=== PATIENT | female | born 1945 | race Caucasian/White ===

== ENCOUNTER → 2017-03-29 | Outpatient (CLI) | payer OTHER | LOC: FIMAGING 08:32 | PROVIDERS: ATTEND Internal Medicine | DX: Z12.31 Encounter for screening mammogram for malignant neoplasm of breast (principal) | CPT/HCPCS: G0202 ==

== ENCOUNTER → 2017-04-05 | Outpatient (CLI) | payer OTHER | LOC: FIMAGING 12:08 | PROVIDERS: ATTEND Internal Medicine | DX: Z12.39 Encounter for other screening for malignant neoplasm of breast (principal); R92.8 Other abnormal and inconclusive findings on diagnostic imaging of breast ==

== ENCOUNTER 2017-06-15 10:40 | Day surgery (SDC) | payer OTHER ==
[2017-06-15] MEDS ORDERED: LR 1,000 ML IV ONE (11:16)
[2017-06-15] MEDS ORDERED: hydrALAZINE 20 MG/ML VIAL ONE (11:33)
[2017-06-15] MEDS ORDERED: MIDAZOLAM 2 MG/2 ML VIAL IVP ONE (11:39)
[2017-06-15] MEDS ORDERED: hydrALAZINE 20 MG/ML VIAL IVP ONE (11:39)
--- NOTE | 2017-06-15 11:39 | PDANEPAE ---
ANE History of Present Illness dysphagia ANE Past Medical History - Cardiovascular History Hx Hypertension: Yes Hx Arrhythmias: No Hx Chest Pain: No Hx Coronary Artery / Peripheral Vascular Disease: No Hx CHF / Valvular Disease: No Hx Palpitations: No Cardiovascular History Comment: HYPERLIPIDEMIA - Pulmonary History Hx COPD: No Hx Asthma/Reactive Airway Disease: No Hx Recent Upper Respiratory Infection: No Hx Oxygen in Use at Home: No Hx Sleep Apnea: No Sleep Apnea Screening Result - Last Documented: Negative - Neurologic History Hx Cerebrovascular Accident: No Hx Seizures: No Hx Dementia: No - Endocrine History Hx Diabetes: Yes Endocrine History Comment: HYPOTHYROID - Renal History Hx Renal Disorders: No - Liver History Hx Hepatic Disorders: No - Neurological & Psychiatric Hx Hx Neurological and Psychiatric Disorders: Yes Neurological / Psychiatric History Comment: ANXIETY - Cancer History Hx Cancer: No - Congenital Disorder History Hx Congenital Disorders: No - GI History Hx Gastrointestinal Disorders: Yes Gastrointestinal History Comment: DIFFICULTY SWALLOWING. DIVERTICULOSIS - Other Health History Other Health History: NEG - Chronic Pain History Chronic Pain: No - Surgical History Prior Surgeries: COLON RESECTION - TUMOR BENIGN ANE Review of Systems - Exercise capacity METS (RN): 4 METS ANE Patient History - Allergies Allergies/Adverse Reactions: No Known Allergies Allergy (Verified 01/04/15 22:48) - Home Medications Home medications: home medication list seen and reviewed Home Medications: Atorvastatin Calcium [Lipitor 20 mg (*)] 20 mg PO DAILY 01/04/15 [Last Taken ] Cholecalciferol Vit D3 [Vitamin D3 (*)] 1,000 units PO DAILY 01/04/15 [Last Taken 01/04/15] Herbals/Supplements -Info Only 1 ea PO DAILY 01/04/15 [Last Taken Unknown] Levothyroxine [Synthroid 112 mcg (*)] 112 mcg PO DAILY06 01/04/15 [Last Taken ] Metoprolol Succinate Xr [Toprol Xl 50 mg (*)] 50 mg PO DAILY 01/04/15 [Last Taken 01/04/15] PARoxetine HCL [Paxil 10mg (*)] 10 mg PO DAILY 01/04/15 [Last Taken 01/04/15] amLODIPine BESYLATE [Norvasc 5 mg (*)] 5 mg PO DAILY 01/04/15 [Last Taken ] traZODone [traZODONE 50MG (*)] 75 mg PO HS 01/04/15 [Last Taken 01/03/15] - Anes Hx Anes Hx: no prior problems - Smoking Hx Smoking Status: Never smoked - Family Anes Hx Family Hx Anesthesia Complications: NEG ANE Labs/Vital Signs - Vital Signs Height: 160.02 cm Weight: 74.843 kg ANE Physical Exam - Airway Neck exam: FROM Mallampati Score: Class 2 Mouth exam: normal dental/mouth exam - Pulmonary Pulmonary: no respiratory distress - Cardiovascular Cardiovascular: regular rate and rhythym - ASA Status ASA Status: III ANE Anesthesia Plan Anesthesia Plan: GA with mask
[2017-06-15 11:42] VITALS: RESP 18
--- NOTE | 2017-06-15 12:03 | PDHPUP ---
History & Physical Update H&P update statement: This history and physical update is based on an assessment of the patient which was completed after admission or registration (within 24 hours), but prior to the surgery/procedure. H&P update: H&P reviewed & patient examined, no change in patient's condition since H&P completed
--- NOTE | 2017-06-15 12:05 | PDGENHP ---
History & Physical Chief Complaint: Dyphagia History of Present Illness: Pt choked on food Pertinent Past, Social, Family History: Negative to HPI Relevant Physical Exam: Afeb. Cv rrr s1s2 nl. Chest CTA. Abd + bs soft Cardiorespiratory Assessment: See PE. EGD to r/o stricture
--- NOTE | 2017-06-15 12:32 | POSTANESTH ---
Post Anesthetic Evaluation Cardiovascular Status: Normal, Stable Respiratory Status: Normal, Stable Level of Consciousness/Mental Status: Can Participate in Eval Pain Control: Adequate, Prn Tx Ordered Nausea/Vomiting Control: Adequate, Prn Tx Ordered Complications Possibly Related to Anesthesia: None Noted
[2017-06-15 13:15] VITALS: BP 140/88; PULSE 84; TEMP 98.1; O2SAT 94
--- NOTE | 2017-06-15 18:45 | GPN ---
[f rep st] PROCEDURE NOTE DATE OF PROCEDURE: 06/15/2017 PROCEDURE PERFORMED: Upper endoscopy with biopsy. INSTRUMENT USED: Olympus gastroscope. MEDICINES GIVEN: Propofol per the anesthesiologist. INDICATIONS: Patient is a 71-year-old who describes a single episode of choking on a large piece of pineapple, which resulted in syncope. She says her was able to remove the pineapple and sh e recovered; but in general does not have significant feeling of food sticking as she swallows or tr ue esophageal dysphagia, occasional acid reflux, although patient remotely does have a history of dy sphagia when seen in the office in 2011. At that time, an upper endoscopy was recommended. Because of her recent episode, upper endoscopy is recommended for evaluation of dysphagia. Prior to the procedure, exam was performed, including auscultation. Heart and lungs within normal l imits. Patient's mental status was appropriate. Procedure was explained; including the risks of bl eeding, perforation, and effects of sedation. She gave her informed consent. FINDINGS: Patient was placed in left lateral decubitus position. Medications were given by slow IV titration per the anesthesiologist. Instrument was inserted through the bite block into the esopha yisel. Esophagus structurally was normal, without clear strictures or evidence to suggest eosinophili c esophagitis; but at the distal esophagus and the GE junction there was an irregular Z-line, sugges tive of possible underlying Rawls's. This was biopsied, scope then passed into the stomach, which had a diffuse portal gastropathy appearance, that was worse more in the upper stomach, that was messi te edematous, erythematous, granular. There were several small erosions in the antrum. The antrum was biopsied. Of note, there was prolonged oozing. This was rinsed and watched for about 5 minutes , and then did stop spontaneously. Duodenum appeared normal. Retroflexion was normal. No obvious esophageal or gastric varices. Scope was then removed from the patient, who tolerated the procedure well. Time spent was approximately 15 minutes. ASSESSMENT: 1. Irregular Z-line, consider possibility of underlying Rawls's. 2. Diffuse gastropathy, most consistent with a portal gastropathy appearance; worse in the more pro ximal stomach. No clear strictures. Suspect patient's dysphagia may be more oropharyngeal. PLAN: 1. We will await biopsies. If the patient does have Rawls's, then recommend repeat upper endosco py in 3 years for surveillance. 2. Recommend initiate Prilosec [id number] once daily for 12 weeks, but consider long-term if Rawls's or significant esophagitis identified on biopsy. 3. Given portal gastropathy appearance and patient's history of abnormal LFTs, recommend check a ri ght upper quadrant ultrasound and recommend labs for INR and iron. Follow up in the office in 3 mon ths. Suggest, if patient has any further episodes of choking, [email or web address] /[id number]/MODL
== END 2017-06-15 13:20 | disposition home or self-care (01) ==
LOC: FSGY 10:40
PROVIDERS: ATTEND Internal Medicine Gastroenterology
PROC: 0DB48ZX Excision of Esophagogastric Junction, Via Natural or Artificial Opening Endoscopic, Diagnostic (ICD-10-PCS; principal; 2017-06-15 12:00)
PROC: 0DB68ZX Excision of Stomach, Via Natural or Artificial Opening Endoscopic, Diagnostic (ICD-10-PCS; principal; 2017-06-15 12:00)
DX: R13.10 Dysphagia, unspecified (principal); K31.9 Disease of stomach and duodenum, unspecified
CPT/HCPCS: J0360; J2250

== ENCOUNTER → 2017-11-27 | Outpatient (CLI) | payer OTHER | LOC: FIMAGING 09:40 | PROVIDERS: ATTEND Internal Medicine | DX: R92.8 Other abnormal and inconclusive findings on diagnostic imaging of breast (principal) ==

== ENCOUNTER → 2018-05-28 | Outpatient (CLI) | payer OTHER | LOC: FIMAGING 09:24 | PROVIDERS: ATTEND Internal Medicine | DX: Z12.31 Encounter for screening mammogram for malignant neoplasm of breast (principal) ==